=== PATIENT | female | born 1945 | race Caucasian/White ===

== ENCOUNTER 2023-04-21 16:48 | Emergency (ER) | payer OTHER ==
[~2023-04-21] VITALS: Ht 152.4 cm; Wt 54.4 kg
[2023-04-21 17:03] VITALS: BP 155/71; PULSE 82; RESP 16; TEMP 97; O2SAT 99
[2023-04-21 17:30] VITALS: BP 155/71; PULSE 82; RESP 16; TEMP 97; O2SAT 99
[2023-04-21] MEDS ORDERED: IBUP-1842 PO (18:31)
== END 2023-04-21 19:38 | disposition home or self-care (01) ==
LOC: MED 16:48
DX: S82.092A Other fracture of left patella, initial encounter for closed fracture (principal); S82.091A Other fracture of right patella, initial encounter for closed fracture; W18.30XA Fall on same level, unspecified, initial encounter; Y93.89 Activity, other specified; Y92.89 Other specified places as the place of occurrence of the external cause; Y99.8 Other external cause status
CPT/HCPCS: 29505; 73562; 73590; 93005; 99284

== ENCOUNTER 2023-07-23 16:25 | Emergency (ER) | payer OTHER ==
[~2023-07-23] VITALS: Ht 160 cm; Wt 54.9 kg
[~2023-07-23 16:25] MED LIST: IBUP-1842 PO
[2023-07-23 16:27] VITALS: BP 95/68; PULSE 90; RESP 20; TEMP 98.1; O2SAT 98
[2023-07-23] MEDS ORDERED: MORPHINE SULFATE 4 MG/ML SYR IM ONE (17:10)
[2023-07-23] MEDS ORDERED: ACET-503 PO ×2 (18:59→20:10)
[2023-07-23] MEDS ORDERED: IBUP-1842 PO ×2 (18:59→20:10)
[2023-07-23 19:25] VITALS: BP 149/62; PULSE 85; RESP 19; O2SAT 94
== END 2023-07-23 19:33 | disposition home or self-care (01) ==
LOC: MED 16:25
DX: S52.502A Unspecified fracture of the lower end of left radius, initial encounter for closed fracture (principal); S52.612A Displaced fracture of left ulna styloid process, initial encounter for closed fracture; S20.212A Contusion of left front wall of thorax, initial encounter; I10 Essential (primary) hypertension; E78.5 Hyperlipidemia, unspecified; Z90.49 Acquired absence of other specified parts of digestive tract; Z98.890 Other specified postprocedural states; Z79.1 Long term (current) use of non-steroidal anti-inflammatories (NSAID); W18.39XA Other fall on same level, initial encounter; Y92.89 Other specified places as the place of occurrence of the external cause; Y93.89 Activity, other specified; Y99.8 Other external cause status
CPT/HCPCS: 12011; 71101; 73110; 90471; 90715; 96372; 99284; J2270; Q0092

== ENCOUNTER 2023-07-29 10:32 | Emergency (ER) | payer OTHER ==
[~2023-07-29] VITALS: Ht 160 cm; Wt 54.9 kg
[2023-07-29 10:32] VITALS: BP 164/92; PULSE 92; RESP 20; TEMP 97.5; O2SAT 96
[~2023-07-29 10:32] MED LIST changes: +ACET-503 PO
[2023-07-29 11:17] LABS: BASOPHILS # (AUTO) 0.1 K/uL (0.00-0.22); BASOPHILS % (AUTO) 1.2 % (0.0-2.0); EOSINOPHILS # (AUTO) 0.1 K/uL (0-0.4); HEMATOCRIT 36.6 % (36-48); HEMOGLOBIN 12.7 g/dL (12.0-16.0); LYMPHOCYTES # (AUTO) 1.7 K/uL (2.5-16.5); LYMPHOCYTES % (AUTO) 19.7 % (20.5-51.1); MEAN CORPUSCULAR HEMOGLOBIN 32 pg (27-31); MEAN CORPUSCULAR HGB CONC 35 g/dL (33-37); MEAN CORPUSCULAR VOLUME 91.2 fL (80-94); MONOCYTES # (AUTO) 0.8 K/uL (0.8-1.0); MONOCYTES % (AUTO) 9.4 % (1.7-9.3); NEUTROPHILS # (AUTO) 5.8 K/uL (1.8-7.7); NEUTROPHILS % (AUTO) 68.7 % (42.2-75.2); PLATELET COUNT (AUTO) 339 K/uL (140-450); RED BLOOD CELL COUNT(AUTO) 4.01 MIL/uL (4.20-5.40); RED CELL DISTRIBUTION WIDTH 14.8 % (11.6-13.7); WHITE BLOOD COUNT (AUTO) 8.4 K/uL (4.8-10.8)
[2023-07-29 11:36] LABS: ANION GAP 16.1 (8-16); CALCIUM 8.9 mg/dL (8.5-10.1); CARBON DIOXIDE 24.7 mmol/L (21-32); CHLORIDE 102 mmol/L (98-107); CREATININE 0.7 mg/dL (0.6-1.3); GLUCOSE 103 mg/dL (74-106); POTASSIUM 3.8 mmol/L (3.5-5.1); SODIUM SERUM 139 mmol/L (136-145); UREA NITROGEN, BLOOD 17 mg/dL (7-18)
[2023-07-29 11:47] LABS: ALBUMIN 3.4 g/dL (3.4-5.0); BILIRUBIN,DIRECT 0.1 mg/dL (0.0-0.3); TOTAL BILIRUBIN 0.5 mg/dL (0.0-1.0); TOTAL PROTEIN, SERUM 8.4 g/dL (6.4-8.2)
[2023-07-29 12:58] LABS: APPEARANCE,URINE CLEAR (CLEAR); BILIRUBIN,URINE NEGATIVE (NEGATIVE); BLOOD, URINE 1+ (NEGATIVE); COLOR,URINE YELLOW (YELLOW); LEUKOCYTE ESTERASE ,URINE 2+ (NEGATIVE); NITRITE, URINE NEGATIVE (NEGATIVE); PROTEIN,URINE TRACE (NEGATIVE); UGLUCOSE NEGATIVE (NEGATIVE); UROBILINOGEN,URINE 0.2 EU/dL (0.2 - 1)
[2023-07-29 13:28] LABS: BACTERIA,URINE 1+ /HPF (None Seen); SQUAMOUS EPITHELIAL CELL,UR 0-3 (FEW) /LPF (0-3 (FEW))
[2023-07-29] MEDS ORDERED: cefTRIAXone 1,000 MG VIAL ONE (14:07)
[2023-07-29 17:07] VITALS: O2SAT 96
[2023-07-29 18:52] VITALS: BP 179/76; PULSE 94; RESP 18; TEMP 97; O2SAT 94
== END 2023-07-29 18:52 | disposition short-term general hospital (02) ==
LOC: MED 10:32
DX: N39.0 Urinary tract infection, site not specified (principal); Z20.822 Contact with and (suspected) exposure to COVID-19; R44.3 Hallucinations, unspecified
CPT/HCPCS: 36415; 70450; 71045; 80048; 80076; 81001; 83605; 84443; 85025; 87040; 87086; 87426; 96365; 99285; J0696